=== PATIENT | male | born 1955 | race Caucasian/White ===

== ENCOUNTER 2019-06-18 07:30 | Inpatient (IN) ==
[2019-06-09 18:06] LABS: Blood Urea Nitrogen 18 mg/dl (8-23); Calcium 9.7 mg/dl (8.6-10.4); Carbon Dioxide 21 mmol/L (22-30); Chloride 104 mmol/L (96-108); Glomerular Filtration Rate 78; Glucose 81 mg/dL (70-105)
[2019-06-09 18:07] LABS: Appearance,Urine CLEAR; Bilirubin,Urine NEG (NEG); Color,Urine YELLOW; Culture Indicated,Urine NO; Glucose,Urine (UA) NEGATIVE (NEG); Ketones,Urine NEG (NEG); Leukocyte Esterase,Urine NEG /uL (NEG); Nitrate,Urine NEG (NEG); Protein,Urine NEG (NEG); Specific Gravity,Urine 1.014 (1.000-1.035); Urine Blood NEG mg/dL (<0.03); Urobilinogen,Urine NEG (NEG)
[2019-06-09 18:39] LABS: Basophils # (Auto) 0.06 K/mcL (0.00-0.30); Basophils % (Auto) 0.7 % (0.0-2.0); Eosinophils # (Auto) 0.18 K/mcL (0.00-0.70); Eosinophils % (Auto) 2.2 % (0.0-7.0); Granulocytes % (Auto) 58.6 % (38.0-78.0); Hemoglobin 13.9 g/dL (13.7-17.5); Lymphocytes # (Auto) 2.31 K/mcL (1.50-4.80); Lymphocytes % (Auto) 28.3 % (15.5-49.0); Mean Cell Volume 91.5 fL (80.0-100.0); Mean Corpuscular HGB Conc 32.3 g/dL (31.0-36.0); Mean Platelet Volume 11.3 fL (7.4-10.4); Monocytes # (Auto) 0.83 K/mcL (0.10-0.90); Monocytes % (Auto) 10.2 % (1.0-12.0); Platelet Count 240 K/mcL (140-440); Red Cell Distribution Width 12.9 % (11.5-14.5); WBC 8.2 K/mcL (4.50-11.00)
[2019-06-09 18:42] LABS: Prothrombin Time 13.1 sec (11.9-14.5)
[~2019-06-18 07:30] MED LIST: ACETAMINOPHEN 500 MG TABLET PO SCH; CELECOXIB 200 MG CAPSULE PO SCH; PREGABALIN 75 MG CAPSULE PO SCH; ceFAZolin 2 GM in DEXTROSE 5% IN WATER 50 ML IV SCH; oxyCODONE 10 MG TAB.ER.12H PO SCH
[2019-06-18] MEDS ORDERED: SCOPOLAMINE 1 PATCH PATCH TOPICAL PRN (09:00)
[2019-06-18] MEDS ORDERED: IPRATROPIUM/ALBUTEROL 3 ML AMPUL.NEB NEB PRN ×2 (09:00→12:38)
[2019-06-18] MEDS ORDERED: GLYCOPYRROLATE 0.2 MG/ML VIAL IV ONE (11:30)
[2019-06-18] MEDS ORDERED: PROPOFOL 200 MG/20 ML VIAL IV ONE (11:30)
[2019-06-18] MEDS ORDERED: fentaNYL 100 MCG/2 ML VIAL IV ONE (11:30)
[2019-06-18] MEDS ORDERED: ONDANSETRON 4 MG/2 ML VIAL IV ONE (11:30)
[2019-06-18] MEDS ORDERED: DEXAMETHASONE 10 MG/ML VIAL IV ONE (11:30)
[2019-06-18] MEDS ORDERED: KETAMINE 100 MG/ML ML IV ONE (11:30)
[2019-06-18] MEDS ORDERED: ROPIVACAINE HCL/PF 20 ML VIAL IJ ONE (11:30)
[2019-06-18] MEDS ORDERED: SUCCINYLCHOLINE 20 MG/ML ML IV ONE (11:30)
[2019-06-18] MEDS ORDERED: LIDOCAINE HCL/PF 100 MG/5 ML SYRINGE IV ONE (11:30)
[2019-06-18] MEDS ORDERED: PROMETHAZINE 25 MG/ML VIAL IV PRN (12:38)
[2019-06-18] MEDS ORDERED: LACTATED RINGERS 250 ML IV PRN (12:38)
[2019-06-18] MEDS ORDERED: ONDANSETRON 4 MG/2 ML VIAL IV PRN ×2 (12:38→12:48)
[2019-06-18] MEDS ORDERED: MEPERIDINE 25 MG/ML SYRINGE IV PRN (12:38)
[2019-06-18] MEDS ORDERED: diphenhydrAMINE 50 MG/ML VIAL IV PRN (12:38)
[2019-06-18] MEDS ORDERED: NALOXONE HCL 0.4 MG/ML VIAL IV PRN (12:38)
[2019-06-18] MEDS ORDERED: GENTAMICIN SULFATE 800 MG/20 ML VIAL IR ONE (12:44)
[2019-06-18] MEDS ORDERED: LACTATED RINGERS 1,000 ML IV SCH (12:45)
--- NOTE | 2019-06-18 12:47 | Brief Operative Note ---
Date of procedure: 06/18/19 Pre-op diagnosis: Right shoulder rca and bicep tear Post-op diagnosis: same Procedure: Right shoulder reverse tsa with bicep tenodesis Grafts/Implants: Yes Anesthesia: GETA Complications: none Surgeon: Zane Koo Sand Blaster: Renzo Wetzel Estimated blood loss (cc): 100 Specimens Removed/Pathology: none sent Condition: stable Disposition: PACU
[2019-06-18] MEDS ORDERED: HYDROcodone/APAP 10/325MG TABLET PO PRN (12:48)
[2019-06-18] MEDS ORDERED: BISACODYL 10 MG SUPP.RECT PR PRN (12:48)
[2019-06-18] MEDS ORDERED: POLYETHYLENE GLYCOL 3350 17 GM PACKET PO PRN (12:48)
[2019-06-18] MEDS ORDERED: TRANEXAMIC ACID 1,000 MG/10 ML VIAL IV SCH (12:48)
[2019-06-18] MEDS ORDERED: BENZOCAINE/MENTHOL 1 LOZENGE PO PRN (12:48)
[2019-06-18] MEDS ORDERED: FLEETS ADULT ENEMA PR PRN (12:48)
[2019-06-18] MEDS ORDERED: MAGNESIUM HYDROXIDE 30 ML ORAL.SUSP PO PRN (12:48)
[2019-06-18] MEDS ORDERED: HYDROmorphone 2 MG/ML VIAL IV PRN (12:48)
[2019-06-18] MEDS ORDERED: ACETAMINOPHEN 325 MG TABLET PO PRN (12:48)
[2019-06-18] MEDS ORDERED: ONDANSETRON 4 MG ODT TABLET PO PRN (12:49)
[2019-06-18] MEDS ORDERED: MECLIZINE 25 MG TABLET PO PRN (12:49)
[2019-06-18] MEDS: fentaNYL 100 MCG/2 ML VIAL IV PRN ×2 (13:11→13:14)
--- NOTE | 2019-06-18 13:36 | Operative Note ---
DATE OF OPERATION: 06/18/2019 PREOPERATIVE DIAGNOSIS: Right shoulder rotator cuff arthropathy with biceps tendinopathy. POSTOPERATIVE DIAGNOSIS: Right shoulder rotator cuff arthropathy with biceps tendinopathy. PROCEDURE: Right reverse total shoulder with biceps tenodesis. SURGEON: Zane Koo MD RENT CONTROL OFFICE MANAGER: Renzo Wetzel PA-C. This provider's expertise and technical skill were required throughout the case. The JAMES assisted with preoperative coordination, intraoperative retraction, wound closure, dressing and splint application, as well as postoperative documentation and care coordination. ANESTHESIA: General LMA anesthesia. COMPLICATIONS: None. ESTIMATED BLOOD LOSS: 100 mL IMPLANTS: Jacky components of a reverse shoulder. DESCRIPTION OF PROCEDURE: The patient was brought to the operating room and placed in a beach chair position. A timeout was performed confirming the operative site by initials, consent form and x-rays. Once this was done, we confirmed that preoperative antibiotics and tranexamic acid had been given. Once done, we then placed Ioban over the skin and made a deltopectoral approach to the shoulder. We exposed the anterior capsule and released the remnants of the subscap, released the remnants of the biceps tendon and performed a biceps tenodesis to the major using a #2 Ethibond stitch. Once this was done, we then were able to sublux the humeral head anteriorly after an inferior capsular release. Once done, I then placed the patient with range of motion exercises. We took the patient through range of motion after subluxing the head posteriorly and identified the biceps tendon remnant and removed this. We released the anterior capsule, a 360 degree capsular release. We placed a central drill bit into the glenoid and then reamed up to the size of 36. At this point, we had reamed the inferior portion of the glenoid to where this was bleeding for good ingrowth and we placed the metaglene. The central screw was 28 mm centrally, superiorly was 36, 32, 28 mm screws. We then placed a 40 mm glenosphere with 2 mm of offset and 2 mm of the eccentricity. Once this was done and tapped into place, we then broached up to the size of 10 on the humerus. We then were able to trial a size 10 with a standard poly. This seemed to fit very nicely. We then implanted the porous ingrowth stem with a small amount of cement with antibiotics impregnated on the distal portion of the stem for security reasons to help instant fixation. Once this was placed, we then placed a standard thickness poly which was highly cross-linked polyethylene, and reduced the shoulder. We were able to take the shoulder through the full range of motion, stretching it and stressing it in each direction. The patient tolerated this well. We irrigated thoroughly, closed the fascial layer with #2 Vicryl and closed the skin with 3-0 Monocryl and adhesive closure. A Donjoy sling was fitted and given to the patient. Blood loss was about 100 mL. GILLH:everett Job ID: [id number] Doc ID: [id number] Zane Koo MD
[2019-06-18] MEDS ORDERED: LISINOPRIL 20 MG TABLET PO PRN (13:57)
--- NOTE | 2019-06-18 15:41 | XRay Report ---
HISTORY: Postop right shoulder arthroplasty FINDINGS: There is a well-positioned reverse shoulder prosthesis. No fracture is present and there are no abnormal soft tissue calcifications around the joint. IMPRESSION: Well-positioned right shoulder prosthesis Interpreted and Authenticated by: Jose Alexandra 06/18/19
[2019-06-18] MEDS: LACTATED RINGERS 1,000 ML IV SCH ×2 (16:55→23:56)
[2019-06-18] MEDS: 0.9 % SODIUM CHLORIDE 10 ML SYRINGE IV SCH ×2 (16:56→21:40)
[2019-06-18] MEDS: ceFAZolin 1 GM VIAL IV SCH (19:15)
[2019-06-18] MEDS ORDERED: TEMAZEPAM 15 MG CAPSULE PO PRN (21:00)
[2019-06-18] MEDS ORDERED: SENNOSIDES 1 TABLET PO SCH (21:00)
[2019-06-18] MEDS ORDERED: GABAPENTIN 100 MG CAPSULE PO SCH (21:00)
[2019-06-18] MEDS: PROPRANOLOL 40 MG TABLET PO SCH (21:39)
[2019-06-18] MEDS: DOCUSATE SODIUM 100 MG CAPSULE PO SCH (21:39)
[2019-06-19] MEDS: 0.9 % SODIUM CHLORIDE 10 ML SYRINGE IV SCH ×2 (03:25→04:44)
[2019-06-19] MEDS: ceFAZolin 1 GM VIAL IV SCH (03:25)
[2019-06-19] MEDS: DOCUSATE SODIUM 100 MG CAPSULE PO SCH (08:44)
[2019-06-19] MEDS: PROPRANOLOL 40 MG TABLET PO SCH (08:44)
[2019-06-19] MEDS ORDERED: FINASTERIDE 5 MG TABLET PO SCH (09:00)
[2019-06-19] MEDS ORDERED: LISINOPRIL 20 MG TABLET PO SCH (09:00)
[2019-06-19] MEDS: LACTATED RINGERS 1,000 ML IV SCH (09:01)
--- NOTE | 2019-06-19 09:13 | Orthopedic Progress Note ---
Subjective Patient information: Note initiated : 06/19/19 at 9:11 am Service Date, if different from initiated Date: [] Patient: Aurelio Villela 64 y/o M admitted on 06/18/19 for Right Reverse Total Shoulder Arthroplasty with. Chief Complaint: [Minimal pain and eating well and no cp no sob] Principal diagnosis: total shoulder Pertinent ROS: feels much better and slept well Objective Vital signs: Vital Signs Temp Pulse Resp BP Pulse Ox 06/19/19 08:00 99.0 F 69 20 143/96 97 06/19/19 07:43 18 06/19/19 03:26 98.1 F 86 16 112/73 97 06/18/19 23:27 98.5 F 90 18 107/20 95 06/18/19 19:10 97.4 F 95 H 18 128/92 96 06/18/19 17:15 69 175/103 97 06/18/19 15:15 76 144/93 95 06/18/19 14:45 62 162/101 95 06/18/19 14:30 67 159/105 96 06/18/19 14:15 63 167/99 97 06/18/19 14:00 75 166/104 95 06/18/19 13:50 97.1 F 74 16 183/106 93 06/18/19 13:35 97.1 F 72 13 180/108 95 06/18/19 13:30 70 12 171/101 95 06/18/19 13:25 97.0 F 75 13 174/102 94 06/18/19 13:20 78 14 166/101 95 06/18/19 13:15 78 13 173/101 96 06/18/19 13:10 97.0 F 84 16 173/117 97 06/18/19 13:05 73 16 155/97 99 06/18/19 13:00 74 16 155/94 98 06/18/19 12:55 97.0 F 76 15 139/93 97 Intake and Output 06/18/19 06/19/19 06/19/19 21:59 05:59 13:59 Intake Total 900 800 Balance 900 800 Intake: IV 100 Lactated Ringers 1,000 ml @ 100 100 mls/hr IV .Q10H [facility] Rx#: [id number] Oral 800 800 Other: Meal Dinner Percent of Meal Consumed 75% Feeding Ability Independent # Voids 1 1 Weight 166 lb Intake & Output: Intake & Output 06/18/19 06/19/19 06/19/19 21:59 05:59 13:59 Intake Total 900 800 Balance 900 800 Weight 166 lb Intake: IV 100 Lactated Ringers 1,000 ml @ 100 100 mls/hr IV .Q10H [facility] Rx#: [id number] Oral 800 800 Other: Meal Dinner Percent of Meal Consumed 75% Feeding Ability Independent # Voids 1 1 Incision: Yes clean and dry Incision clean and dry: Yes Dressing: Yes clean Weight bearing status: partial Neurological exam IM: Yes alert, Yes oriented X3, Yes neurovascular intact Extremities exam IM: Yes joint swelling, Yes Foot pink and warm, Yes neurovascular intact (dc home today) - Labs CBC & BMP: 06/09/19 14:56 06/09/19 14:55 Labs: Orthopedic Labs 06/09/19 14:56 PT 13.1 INR 1.0 06/09/19 14:56 Hgb 13.9 Hct 43.0
--- NOTE | 2019-07-06 09:53 | Discharge Summary ---
Ortho Discharge - TSA - Patient Instructions Diet: Regular Diet Activity: activity as tolerated, weight bearing as tolerated Total Shoulder Protocol: Leave immobilizer in place except for bathing and ROM. Abduction pillow. Continue to wear sling until seen by physician. Codman Pendulum : These exercises use momentum produced by your body to move your shoulder joint. Bend your knees and shift your weight to your front leg, then back, allowing your arm to swing in the same directions. Using the same technique, alternately shift your weight between your right and left legs, allowing your arm to swing from side to side. These exercises are also performed in counterclockwise and clockwise circular motions. Typically these exercises are performed several times per day, for a set number repetitions or minutes, such as 20 times in a row or 5 minutes at a time. Dressing Care: May shower in 2 days Patient Education: Hydrocodone/Acetaminophen (By mouth), Aspirin (By mouth), Shoulder Arthroplasty (DC) Additional Instructions: Discharge Instructions: Do the exercises at home that physical therapy gave you. Take your prescription, photo ID, insurance cards, and current medication list with you to your first physical therapy appointment. Wear comfortable clothing for your physical therapy. Leave immobilizer in place except for bathing and ROM. No weight bearing with right arm/hand. Abduction pillow. Continue to wear sling until seen by physician. Codman Pendulum : These exercises use momentum produced by your body to move your shoulder joint. Bend your knees and shift your weight to your front leg, then back, allowing your arm to swing in the same directions. Using the same technique, alternately shift your weight between your right and left legs, allowing your arm to swing from side to side. These exercises are also performed in counterclockwise and clockwise circular motions. Typically these exercises are performed several times per day, for a set number repetitions or minutes, such as 20 times in a row or 5 minutes at a time. Take your prescription to [employer] any medication or equipment (such as walker, crutches, toilet riser or C.P.M.) You have Dermabond (a dressing with a mesh-like appearance), DO NOT remove mesh. Cover site daily with a new gauze dressing. You may start showering on post op day #2. The Dermabond dressing can get wet. Do not scrub dressing. Pat dry, then place new dry gauze (rewrap with PAT dressing if you had a total knee). Use ice packs as directed, on for 20 minutes at a time, throughout the day. Ice and elevation will help with pain and swelling. If you have any questions or concerns call your orthopedic surgeon before going to the emergency room. [facility] has a environmental monitoring specialist physician 24 hours per day/7 days per week and can be reached at [phone]. Call for fevers above 100.5 or pain not controlled by medication. Take Aspirin as prescribed to prevent blood clots (see medication list). - Follow Up Plan Follow Up Appointments: Renzo Wetzel PA-C [Physician Tray Server] - 07/01/19 10:00 am Disposition: Home, Self-Care Care Plan Goals: This discharge packet is provided to you to help keep you informed about your care. We want to ensure you get everything you need when you go home. You will also be receiving a call from us in a few days to follow up with you and see how you are doing since your discharge. This gives us a chance to listen to any concerns you maybe experiencing since you were discharged or any additional needs you may have, as well as providing us feedback on your care experience. We strive to always provide excellent care and thank you for your feedback and for choosing [facility]. Prognosis: Good Rehab Potential: Good I certify that the patient requires SNF services: No Overall status at discharge: patient is progressing back to baseline - Orders For Discharge Prescriptions: Aspirin [Ecotrin] 325 mg PO DAILY #14 tab.ec Transmission Status: Received by [facility] [id number] HYDROcodone/APAP 10/325MG [Independence 10-325Mg] 1 - 2 tab PO Q4H PRN #60 tab PRN Reason: Pain Prescription Printed Additional Discharge Orders: Physical Therapy at Discharge - TSA Location: None Selected Brace/Splint Location: None Selected
== END 2019-06-19 10:06 | disposition home or self-care (01) | DRG 483 ==
LOC: MEDSUR 08:19
PROVIDERS: ADMIT Orthopaedic Surgery; ATTEND Orthopaedic Surgery